=== PATIENT | male | born 1940 | race Caucasian/White ===

== ENCOUNTER → 2016-12-02 | Outpatient (CLI) | payer OTHER ==
[~2016-12-02] VITALS: Ht 177.8 cm; Wt 70.2 kg
[~2016-12-02] MED LIST: ALPRAZOLAM0.5 MG PO; AMARYL2 MG PO; CENTRUM SILVER1 EAC3 PO; CHILD ASPIRIN81 M1 PO; CIALIS20 MG PO; GLUCOPHAGE XR,500 MG PO; IRON325 M1 PO; JALYN 0.5-0.41 EACH PO; JANUVIA100 MG PO; LEVEMIR FL100 UNIT/1 SC; METFORMIN HCL500 M1 PO; NITROSTAT0.4 MG SL; NORCO 5/3251 TABLET PO; PLAVIX75 MG PO; PRAVACHOL80 MG PO; PRINIVIL20 MG PO; SPIRIVA1 INHALATI IH; TOPROL XL25 MG PO; TRICOR145 MG PO; TRULICITY1.5 MG/0.5 SC; VENTOLIN HFA18 GM IH; VITAMIN B-12250 MCG PO; ZETIA10 MG PO
[2016-12-02 11:35] LABS: POINT-OF-CARE METER ID UU13113694
== END | disposition home or self-care (01) ==
LOC: AMB 09:30
PROVIDERS: Internal Medicine Gastroenterology
PROC: 0DBL8ZX Excision of Transverse Colon, Via Natural or Artificial Opening Endoscopic, Diagnostic (ICD-10-PCS; principal; 2016-12-02)
DX: Z12.11 Encounter for screening for malignant neoplasm of colon (principal); D12.3 Benign neoplasm of transverse colon; K57.30 Diverticulosis of large intestine without perforation or abscess without bleeding; D64.9 Anemia, unspecified; D69.6 Thrombocytopenia, unspecified; Z86.010 Personal history of colon polyps; I10 Essential (primary) hypertension; N40.0 Benign prostatic hyperplasia without lower urinary tract symptoms; J44.9 Chronic obstructive pulmonary disease, unspecified; I25.10 Atherosclerotic heart disease of native coronary artery without angina pectoris; Z95.5 Presence of coronary angioplasty implant and graft; E11.9 Type 2 diabetes mellitus without complications; E78.5 Hyperlipidemia, unspecified; Z79.02 Long term (current) use of antithrombotics/antiplatelets; Z87.891 Personal history of nicotine dependence; Z79.82 Long term (current) use of aspirin; Z79.84 Long term (current) use of oral hypoglycemic drugs
CPT/HCPCS: 82948; 88305; J3010